=== PATIENT | female | born 1960 | race African-American/Black ===

== ENCOUNTER 2021-05-25 20:51 | Emergency (ER) | payer OTHER ==
[~2021-05-25] VITALS: Ht 165.1 cm; Wt 61.0 kg
[2021-05-25 23:11] VITALS: BP 142/72
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
== END 2021-05-25 23:56 | disposition home or self-care (01) ==
LOC: ER 20:51
DX: M54.2 Cervicalgia (principal); G89.11 Acute pain due to trauma; V49.9XXA Car occupant (driver) (passenger) injured in unspecified traffic accident, initial encounter; Y93.89 Activity, other specified; Y92.488 Other paved roadways as the place of occurrence of the external cause; Y99.8 Other external cause status
CPT/HCPCS: 99282